=== PATIENT | male | born 1995 | race Caucasian/White ===

== ENCOUNTER 2017-12-13 23:43 | Emergency (ER) | payer OTHER, MEDICAID ==
[~2017-12-13] VITALS: Ht 177.8 cm; Wt 70.0 kg
[2017-12-13 23:54] VITALS: BP 131/91; PULSE 80; RESP 18; O2SAT 99
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
[2017-12-14 00:25] LABS: AUTOMATED NEUTROPHIL # 9.8 TH/MM3 (1.8-7.7); BASOPHIL % 0.4 % (0.0-2.0); EOSINOPHIL % 0.3 % (0.0-4.0); HEMATOCRIT 45.9 % (39.0-51.0); HEMOGLOBIN 16.4 GM/DL (13.0-17.0); LYMPH % 14.5 % (9.0-44.0); LYMPHOCYTE # 1.8 TH/MM3 (1.0-4.8); MEAN CELL VOLUME 88.9 FL (80.0-100.0); MEAN CORPUSCULAR HEMOGLOBIN 31.8 PG (27.0-34.0); MEAN CORPUSCULAR HGB CONC 35.8 % (32.0-36.0); MEAN PLATELET VOLUME 10.5 FL (7.0-11.0); MONO % 6.5 % (0.0-8.0); MONOCYTE # 0.8 TH/MM3 (0-0.9); NEUT % 78.3 % (16.0-70.0); PLATELET COUNT 178 TH/MM3 (150-450); RED BLOOD COUNT 5.17 MIL/MM3 (4.50-5.90); RED CELL DISTRIBUTION WIDTH 12.7 % (11.6-17.2); WHITE BLOOD COUNT 12.5 TH/MM3 (4.0-11.0)
[2017-12-14 00:41] LABS: ALBUMIN 4.5 GM/DL (3.4-5.0); ALT (GPT) 18 U/L (9-52); AST (GOT) 15 U/L (15-39); BLOOD UREA NITROGEN 8 MG/DL (7-18); CHLORIDE 103 MEQ/L (98-107); CREATININE 1.21 MG/DL (0.60-1.30); GLOMERULAR FILTRATION RATE 77 ML/MIN (>89); GLUCOSE,RANDOM 100 MG/DL (74-106); SODIUM (NA) 141 MEQ/L (136-145)
[2017-12-14 00:51] LABS: ALKALINE PHOSPHATASE 70 U/L (45-117); TOTAL BILIRUBIN ADULT 0.5 MG/DL (0.2-1.0); TOTAL PROTEIN 8.1 GM/DL (6.4-8.2)
[2017-12-14 00:54] LABS: ACETAMINOPHEN LESS THAN 2.0 MCG/ML (10.0-30.0)
[2017-12-14 02:15] VITALS: BP 126/74; PULSE 66; RESP 18; TEMP 97.4; O2SAT 98
[2017-12-14 06:27] VITALS: BP 127/68; PULSE 76; RESP 18; TEMP 98; O2SAT 99
[2017-12-14 11:23] VITALS: BP 125/77; PULSE 58; RESP 18; O2SAT 100
--- NOTE | 2017-12-14 13:29 | PD ---
Data Data Last Documented VS Vital Signs Date Time Temp Pulse Resp B/P (MAP) Pulse Ox O2 Delivery O2 Flow Rate FiO2 12/14/17 11:23 58 18 125/77 (93) 100 Room Air 12/14/17 06:27 98.0 Orders Orders Complete Blood Count With Diff (12/14/17 00:00) Comprehensive Metabolic Panel (12/14/17 00:00) Thyroid Stimulating Hormone (12/14/17 00:00) Psych Screen (12/14/17 00:00) Drug Screen, Random Urine (12/14/17 00:00) Alcohol (Ethanol) (12/14/17 00:00) Salicylates (Aspirin) (12/14/17 00:00) Tylenol (Acetaminophen) (12/14/17 00:00) Diet Regular Basic (12/14/17 Breakfast) Diet Regular Basic (12/14/17 Lunch) Labs Laboratory Tests Test 12/14/17 00:15 White Blood Count 12.5 TH/MM3 Red Blood Count 5.17 MIL/MM3 Hemoglobin 16.4 GM/DL Hematocrit 45.9 % Mean Corpuscular Volume 88.9 FL Mean Corpuscular Hemoglobin 31.8 PG Mean Corpuscular Hemoglobin Concent 35.8 % Red Cell Distribution Width 12.7 % Platelet Count 178 TH/MM3 Mean Platelet Volume 10.5 FL Neutrophils (%) (Auto) 78.3 % Lymphocytes (%) (Auto) 14.5 % Monocytes (%) (Auto) 6.5 % Eosinophils (%) (Auto) 0.3 % Basophils (%) (Auto) 0.4 % Neutrophils # (Auto) 9.8 TH/MM3 Lymphocytes # (Auto) 1.8 TH/MM3 Monocytes # (Auto) 0.8 TH/MM3 Eosinophils # (Auto) 0.0 TH/MM3 Basophils # (Auto) 0.0 TH/MM3 CBC Comment DIFF FINAL Differential Comment Blood Urea Nitrogen 8 MG/DL Creatinine 1.21 MG/DL Random Glucose 100 MG/DL Total Protein 8.1 GM/DL Albumin 4.5 GM/DL Calcium Level 9.0 MG/DL Alkaline Phosphatase 70 U/L Aspartate Amino Transf (AST/SGOT) 15 U/L Alanine Aminotransferase (ALT/SGPT) 18 U/L Total Bilirubin 0.5 MG/DL Sodium Level 141 MEQ/L Potassium Level 3.8 MEQ/L Chloride Level 103 MEQ/L Carbon Dioxide Level 31.0 MEQ/L Anion Gap 7 MEQ/L Estimat Glomerular Filtration Rate 77 ML/MIN Thyroid Stimulating Hormone 3rd Gen 5.150 uIU/ML Salicylates Level LESS THAN 1.7 MG/DL Urine Opiates Screen NEG Acetaminophen Level LESS THAN 2.0 MCG/ML Urine Barbiturates Screen NEG Urine Amphetamines Screen NEG Urine Benzodiazepines Screen NEG Urine Cocaine Screen NEG Urine Cannabinoids Screen NEG Ethyl Alcohol Level LESS THAN 3 MG/DL MDM Supervised Visit with SABINO: No Narrative Course 21-year-old came to the emergency department after Vazquez act. Denies any homicidality or suicidality. Was seen by JOS Riley with psychiatry. Recommend lifting Vazquez act. I personally evaluated the patient and agree with her assessment. Patient will follow-up as an outpatient. Does not appear to be a risk to himself or others. Diagnosis Primary Impression: Mood disorder Additional Instruction: Return to the emergency department for any new or worsening symptoms. Follow-up with outpatient resources as discussed. Med/Other Pt SpecificInfo: No Change to Meds Disposition: 01 DISCHARGE HOME Condition: Stable Artis López MD December 14, 2017 13:29
--- NOTE | 2017-12-14 14:17 | PD ---
History of Present Illness Chief Complaint: Psychiatric Symptoms Time Seen by Provider: 12:30 Travel History International Travel<30 Days: No Contact w/Intl Traveler<30days: No Known affected area: No Legal Status Legal Status: Vazquez Act Vazquez Act Signed By: Julián Vazquez Act Comment: 12/13/2017 1109 PM [facility]. [facility][id number] C/N [id number] History of Present Illness: This is a 21-year-old single, male who presents under Vazquez act to this facility for reportedly making suicidal statements to family member. Patient is known to this facility via his outpatient visits to [facility] for ADD and ODD treatment however, he has never been admitted inpatient here. Reviewed electronic medical record, labs, discuss case with staff. Patient's toxicology screen is negative. Patient was found sitting in his room awake, alert, and oriented 4. His mood is good his affect is euthymic. His speech is clear, logical, and organized.Internal stimulation or thought blocking. He denies suicidal ideation, homicidal ideation, auditory or visual hallucinations. I can elicit no delusional material. There is no indication of internal stimulation or thought blocking. Patient does admit that he made a statement to his sister when confiding in her. He advises, "I would never act on it everybody has those kinds of thoughts occasionally". He goes on to report that he has a dysfunctional family, he claims that his mother and most of his family are chronic alcoholics. He relates that he lives with a friend's mother at her house. He denies that there are any firearms in the house and states "I will be honest, I do not have the money to buy one". PFSH Past Medical History Tetanus Vaccination: < 5 Years Past Surgical History Surgical History: No Previous Surgery Psychiatric History Psychiatric History Hx Psychiatric Treatment: Patient's past outpatient hx notes treatment at [facility] for ADHD. History of Inpatient Treatment: No Guns or firearms in home: No Social History Hx Alcohol Use: Yes Hx Tobacco Use: Yes Hx Substance Use: No (e-cig) Hx of Substance Use Treatment: No Allergies-Medications (Allergen,Severity, Reaction): Coded Allergies: No Known Allergies (Unverified , 12/13/17) Mental Status Examination Appearance: Appropriate Consciousness: Alert Orientation: x4 Motor Activity: Normal gait Speech: Unremarkable Language: Adequate Fund of Knowledge: Adequate Attention and Concentration: Adequate Memory: Unremarkable Mood: Appropriate, Good Affect: Appropriate, Euthymic Thought Process & Associations: Intact Thought Content: Appropriate Hallucination Type: None Delusion Type: None Suicidal Ideation: No Suicidal Plan: No Suicidal Intention: No Homicidal Ideation: No Homicidal Plan: No Homicidal Intention: No Insight: Adequate Judgment: Adequate [facility] Medical Decision Making Medical Record Reviewed: Yes Assessment/Plan This is a 21-year-old single, male who presents under a Vazquez act to this facility for reportedly making suicidal statements to family members. Upon examination this morning patient is awake, alert, and oriented 4. His speech is clear, logical, and organized. There is no indication of internal stimulation or thought blocking present. He denies suicidal and homicidal ideation as well as auditory visual hallucinations. Patient's mood is good his affect is euthymic. He is neatly groomed and makes appropriate eye contact and interacts appropriately throughout the interview. At this time patient no longer meets Vazquez act criteria. Consulted with Dr. López, ED's physician who also saw the patient and concurs with my assessment. The Vazquez act has been lifted. Recommended to patient to follow-up at [facility] for some possible therapy to help with his dysfunctional relationship with his family. Patient advised to return to this facility if his condition should worsen. Orders Orders Complete Blood Count With Diff (12/14/17 00:00) Comprehensive Metabolic Panel (12/14/17 00:00) Thyroid Stimulating Hormone (12/14/17 00:00) Psych Screen (12/14/17 00:00) Drug Screen, Random Urine (12/14/17 00:00) Alcohol (Ethanol) (12/14/17 00:00) Salicylates (Aspirin) (12/14/17 00:00) Tylenol (Acetaminophen) (12/14/17 00:00) Diet Regular Basic (12/14/17 Breakfast) Ed Discharge Order (12/14/17 13:30) Results Vital Signs Date Time Temp Pulse Resp B/P (MAP) Pulse Ox O2 Delivery O2 Flow Rate FiO2 12/14/17 13:45 12/14/17 11:23 58 18 125/77 (93) 100 Room Air 12/14/17 06:27 98.0 76 18 127/68 (87) 99 Room Air 12/14/17 02:15 97.4 66 18 126/74 (91) 98 Room Air 12/13/17 23:54 80 18 131/91 (104) 99 Laboratory Tests Test 12/14/17 00:15 White Blood Count 12.5 Red Blood Count 5.17 Hemoglobin 16.4 Hematocrit 45.9 Mean Corpuscular Volume 88.9 Mean Corpuscular Hemoglobin 31.8 Mean Corpuscular Hemoglobin Concent 35.8 Red Cell Distribution Width 12.7 Platelet Count 178 Mean Platelet Volume 10.5 Neutrophils (%) (Auto) 78.3 Lymphocytes (%) (Auto) 14.5 Monocytes (%) (Auto) 6.5 Eosinophils (%) (Auto) 0.3 Basophils (%) (Auto) 0.4 Neutrophils # (Auto) 9.8 Lymphocytes # (Auto) 1.8 Monocytes # (Auto) 0.8 Eosinophils # (Auto) 0.0 Basophils # (Auto) 0.0 CBC Comment DIFF FINAL Differential Comment Blood Urea Nitrogen 8 Creatinine 1.21 Random Glucose 100 Total Protein 8.1 Albumin 4.5 Calcium Level 9.0 Alkaline Phosphatase 70 Aspartate Amino Transf (AST/SGOT) 15 Alanine Aminotransferase (ALT/SGPT) 18 Total Bilirubin 0.5 Sodium Level 141 Potassium Level 3.8 Chloride Level 103 Carbon Dioxide Level 31.0 Anion Gap 7 Estimat Glomerular Filtration Rate 77 Thyroid Stimulating Hormone 3rd Gen 5.150 Salicylates Level LESS THAN 1.7 Urine Opiates Screen NEG Acetaminophen Level LESS THAN 2.0 Urine Barbiturates Screen NEG Urine Amphetamines Screen NEG Urine Benzodiazepines Screen NEG Urine Cocaine Screen NEG Urine Cannabinoids Screen NEG Ethyl Alcohol Level LESS THAN 3 Diagnosis Primary Impression: Adjustment disorder Psychiatrically Cleared: Yes Departure Forms: Tests/Procedures Patient Instructions: General Instructions Additional Instructions: Return to the emergency department for any new or worsening symptoms. Follow-up with outpatient resources as discussed. Disposition: 01 DISCHARGE HOME Condition: Stable MontyPrakashsally ARGUELLO December 14, 2017 14:17
== END 2017-12-14 13:46 | disposition home or self-care (01) ==
LOC: NEPJ 23:43
DX: F43.20 Adjustment disorder, unspecified (principal); Z72.0 Tobacco use
CPT/HCPCS: 80053; 80307; 84443; 85025; 99283